=== PATIENT | female | born 1935 | race African-American/Black ===

== ENCOUNTER 2021-07-17 15:58 | Emergency (ER) | payer OTHER, BC ==
[2021-07-17 16:26] VITALS: BP 125/80; PULSE 73; TEMP 98.4; BMI 22.8
[2021-07-17] MEDS ORDERED: ACETAMINOPHEN 325 MG TABLET (FP) PO ONE (17:27)
[2021-07-17] MEDS ORDERED: ACETAMINOPHEN 325 MG TABLET (FP) ONE (17:48)
== END 2021-07-17 18:04 | disposition home or self-care (01) ==
LOC: JERFT 15:58
DX: S52.502A Unspecified fracture of the lower end of left radius, initial encounter for closed fracture (principal)
CPT/HCPCS: 73110-TC-LT-FY; 73130-TC-LT-FY; 99284-25